=== PATIENT | male | born 1960 | race Caucasian/White ===

== ENCOUNTER 2016-09-26 19:01 | Inpatient (IN) | payer OTHER ==
[~2016-09-26] VITALS: Ht 180.3 cm; Wt 76.5 kg
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
--- NOTE | 2016-09-26 20:59 | ED ORDER SUMMARY ---
..... Patient: ALVARO ROWE OrderSheet [facility] VisitID: [id number] [place] [address] 56y, M Registration Date/Time: 09/26/2016 ORDER SHEET Weight: 74.8 kg (stated) Allergies: No Known Drug Allergy GENERAL ORDERS: Chest 2V Urgent (19:44 09/26/2016 PHutchinson DO) (Ack 19:53 NHouse ER Tech1) (20:51 MCampbell) Social Media Strategist (Continuous) (19:44 09/26/2016 PHutchinson DO) (20:03 CHagerty ER Recreation Program Coordinator) UA-Culture if indicated Urgent (19:44 09/26/2016 PHutchinson DO) (Ack 19:53 NHouse ER Tech1) (20:13 SRoberts R.N.) Cardiac Panel Stat (19:44 09/26/2016 PHutchinson DO) (Ack 19:53 NHouse ER Tech1) (20:03 CHagerty ER Recreation Program Coordinator) BNP Urgent (19:44 09/26/2016 PHutchinson DO) (Ack 19:53 NHouse ER Tech1) (20:03 CHagerty ER Recreation Program Coordinator) Amylase Urgent (19:44 09/26/2016 PHutchinson DO) (Ack 19:53 NHouse ER Tech1) (20:03 CHagerty ER Recreation Program Coordinator) PT with INR Urgent (19:44 09/26/2016 PHutchinson DO) (Ack 19:53 NHouse ER Tech1) (20:03 CHagerty ER Recreation Program Coordinator) TSH Urgent (19:44 09/26/2016 PHutchinson DO) (Ack 19:53 NHouse ER Tech1) (20:03 CHagerty ER Recreation Program Coordinator) Oxygen (2 L/min) (NC) (19:44 09/26/2016 PHutchinson DO) (20:03 CHagerty ER Recreation Program Coordinator) Pulse oximeter (19:44 09/26/2016 PHutchinson DO) (20:03 CHagerty ER Recreation Program Coordinator) EKG - ER Stat (19:44 09/26/2016 PHutchinson DO) (20:03 CHagerty ER Recreation Program Coordinator) Vitals (19:44 09/26/2016 PHutchinson DO) (20[facility] Blood Culture (No) (N/A) Urgent (19:45 09/26/2016 PHutchinson DO) (Ack 19:53 HIouse ER Tech1) (20:03 [facility] Rapid Influenza Screen (Nasal Pharyngeal) (FORM STRIPPER swab) Urgent (19:46 09/26/2016 PHutchinson DO) (Ack 19:53 HIouse ER Tech1) (22:02 SRoberts R.N.) (22:04 HIouse ER Tech1) Ammonia Level Urgent (21:02 09/26/2016 PHutchinson DO) (Ack 21:05 NHouse ER Tech1) (21:55 NHouse ER Tech1) Lactate, Serum Urgent (21:57 09/26/2016 PHutchinson DO) (22:04 HIouse ER Tech1) PCT (Procalcitonin) Urgent (21:57 09/26/2016 PHutchinson DO) (22:04 HIouse ER Tech1) MEDICATION ORDERS: DuoNeb Neb Tx 1 unit dose (NOW) (19:44 09/26/2016 PHutchinson DO) (20:04 [facility] ER Recreation Program Coordinator) Levaquin PO 750 mg (after blood cultures) (20:47 09/26/2016 PHutchinson DO) (Ack 21:16 SRoberts R.N.) (21:28 SRoberts R.N.) NitroGLYCERIN Paste Topical 1.5 in. (NOW, to CW) (20:57 09/26/2016 PHutchinson DO) (Ack 21:16 SRoberts R.N.) (21:29 SRoberts R.N.) Albuterol Neb Tx 1 unit dose (HHN) (21:20 09/26/2016 PHutchinson DO) IV FLUIDS: IV NS : initial bolus 1000 mL (1000 mL/hr), then 250 mL/hr for X4 (NOW) (19:44 09/26/2016 PHutchinson DO) (20:15 SRoberts R.N.) Solu-MEDROL IV 125 mg (NOW) (19:45 09/26/2016 PHutchinson DO) (20:15 SRoberts R.N.) ORDER SHEET NOTES: [Electronically signed by Francisca Adames R.N. (22:48 09/26/2016)] [Electronically signed by Jose Corbett DO (23:03 09/26/2016)] [Electronically locked/signed by Francisca Adames R.N. (22:48 09/26/2016)]
--- NOTE | 2016-09-26 20:59 | ED ORDER SUMMARY ---
..... Patient: ALVARO ROWE OrderSheet [facility] VisitID: [id number] [place] [address] 56y, M Registration Date/Time: 09/26/2016 ORDER SHEET Weight: 74.8 kg (stated) Allergies: No Known Drug Allergy GENERAL ORDERS: Chest 2V Urgent (19:44 09/26/2016 PHutchinson DO) (Ack 19:53 NHouse ER Tech1) (20:51 MCampbell) Men'S Leather Dress Belt Maker (Continuous) (19:44 09/26/2016 PHutchinson DO) (20:03 CHagerty ER Underwriting Consultant) UA-Culture if indicated Urgent (19:44 09/26/2016 PHutchinson DO) (Ack 19:53 NHouse ER Tech1) (20:13 SRoberts R.N.) Cardiac Panel Stat (19:44 09/26/2016 PHutchinson DO) (Ack 19:53 NHouse ER Tech1) (20:03 CHagerty ER Underwriting Consultant) BNP Urgent (19:44 09/26/2016 PHutchinson DO) (Ack 19:53 NHouse ER Tech1) (20:03 CHagerty ER Underwriting Consultant) Amylase Urgent (19:44 09/26/2016 PHutchinson DO) (Ack 19:53 NHouse ER Tech1) (20:03 CHagerty ER Underwriting Consultant) PT with INR Urgent (19:44 09/26/2016 PHutchinson DO) (Ack 19:53 NHouse ER Tech1) (20:03 CHagerty ER Underwriting Consultant) TSH Urgent (19:44 09/26/2016 PHutchinson DO) (Ack 19:53 NHouse ER Tech1) (20:03 CHagerty ER Underwriting Consultant) Oxygen (2 L/min) (NC) (19:44 09/26/2016 PHutchinson DO) (20:03 CHagerty ER Underwriting Consultant) Pulse oximeter (19:44 09/26/2016 PHutchinson DO) (20:03 CHagerty ER Underwriting Consultant) EKG - ER Stat (19:44 09/26/2016 PHutchinson DO) (20:03 CHagerty ER Underwriting Consultant) Vitals (19:44 09/26/2016 PHutchinson DO) [facility] [facility] Blood Culture (No) (N/A) Urgent (19:45 09/26/2016 PHutchinson DO) (Ack 19:53 NCouse ER Tech1) (20:[address] [facility] Rapid Influenza Screen (Nasal Pharyngeal) (STONE LAYER swab) Urgent (19:46 09/26/2016 PHutchinson DO) (Ack 19:53 NCouse ER Tech1) (22:02 SRoberts R.N.) (22:04 NCouse ER Tech1) Ammonia Level Urgent (21:02 09/26/2016 PHutchinson DO) (Ack 21:05 NHouse ER Tech1) (21:55 NHouse ER Tech1) Lactate, Serum Urgent (21:57 09/26/2016 PHutchinson DO) (22:04 NCouse ER Tech1) PCT (Procalcitonin) Urgent (21:57 09/26/2016 PHutchinson DO) (22:04 NCouse ER Tech1) MEDICATION ORDERS: DuoNeb Neb Tx 1 unit dose (NOW) (19:44 09/26/2016 PHutchinson DO) (20:04 [facility] ER Underwriting Consultant) Levaquin PO 750 mg (after blood cultures) (20:47 09/26/2016 PHutchinson DO) (Ack 21:16 SRoberts R.N.) (21:28 SRoberts R.N.) NitroGLYCERIN Paste Topical 1.5 in. (NOW, to CW) (20:57 09/26/2016 PHutchinson DO) (Ack 21:16 SRoberts R.N.) (21:29 SRoberts R.N.) Albuterol Neb Tx 1 unit dose (HHN) (21:20 09/26/2016 PHutchinson DO) IV FLUIDS: IV NS : initial bolus 1000 mL (1000 mL/hr), then 250 mL/hr for X4 (NOW) (19:44 09/26/2016 PHutchinson DO) (20:15 SRoberts R.N.) Solu-MEDROL IV 125 mg (NOW) (19:45 09/26/2016 PHutchinson DO) (20:15 SRoberts R.N.) ORDER SHEET NOTES: [Electronically signed by Francisca Adames R.N. (22:48 09/26/2016)] [Electronically signed by Jose Corbett DO (23:03 09/26/2016)] [Electronically locked/signed by Francisca Adames R.N. (22:48 09/26/2016)]
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
--- NOTE | 2016-09-26 21:24 | DIAGNOSTIC IMAGING REPORT ---
PROCEDURE: XR CHEST 2 VIEW INDICATION: SHORTNESS OF BREATH, initial encounter TECHNIQUE: PA and lateral view. COMPARISON: Chest 12/04 08:16 FINDINGS: New mild diffuse interstitial infiltrates bilaterally, more confluent in the right lower and left upper lobes. Heart size, mediastinum and prior vessels are normal. Bony thorax is unremarkable. IMPRESSION: 1. Diffuse bilateral interstitial infiltrate suggestive of atypical pneumonia (viral, Mycoplasma)
--- NOTE | 2016-09-26 23:03 | ED MAR SUMMARY ---
..... Medication Administration Record [facility] [address] [place] [address] Patient: ALVARO ROWE Visit ID: [id number] 56y, M Weight: 74.8 kg Height/Length: 71 in BMI: 23 ALLERGIES: No Known Drug Allergy Given 20:03 09/26/2016 Joao Russell, ER Electric [employer] Medication Administered: DUONEB [NEB TX] (IPRATROPIUM-ALBUTEROL), Dose: 1 unit dose Nebulizer Neb TX. Medication Ordered: DuoNeb Neb Tx 1 unit dose (NOW). Given 20:05 09/26/2016 Francisca Adames R.N. Medication Administered: SOLU-MEDROL [IVP] (METHYLPREDNISOLONE SODIUM SUCC), Dose: 125 mg IVP over 1 minute(s), Site: #1 right AC. Medication Ordered: Solu-MEDROL IV 125 mg (NOW). Start 20:05 09/26/2016 Francisca Adames R.N., Continued Upon Admission 22:33 09/26/2016 Francisca Adames R.N. Medication Administered: IV NS (SALINE), Dose: IV Fluids over 4 hour(s), Rate: 250 mL/hr, Bolus: 1000 mL over 1 hour(s), Dispensed: 1000 mL bag, Site: #1 right AC. Medication Ordered: IV NS : initial bolus 1000 mL (1000 mL/hr), then 250 mL/hr for X4 (NOW). Given 21:09/26/2016 Francisca Adames R.N. Medication Administered: LEVAQUIN [PO] (LEVOFLOXACIN), Dose: 750 mg PO. Medication Ordered: Levaquin PO 750 mg (after blood cultures). Given 21:29 09/26/2016 Francisca Adames R.N. Medication Administered: NITROGLYCERIN PASTE [TOPICAL], Dose: 1.5 in. Topical. Medication Ordered: NitroGLYCERIN Paste Topical 1.5 in. (NOW, to ).
--- NOTE | 2016-09-26 23:03 | ED MED RECONCILIATION SUMMARY ---
Patient: ALVARO ROWE Medication Reconciliation Report [facility] VisitID: [id number] [address] [place] [address] 56y, M Registration Date/Time: 09/26/2016 Weight: 74.8 kg Height/Length: 71 in. BMI: 23.0 ALLERGIES: No Known Drug Allergy The patient's Home Medications are listed below: THE FOLLOWING MEDICATIONS NEED TO BE RECONCILED: Atenolol Oral 100 mg, daily Baclofen 20mg tid Cefuroxime Axetil Oral 500 mg, 2x a day Flagyl Oral 500 mg, 4x a day Omeprazole Oral 20 mg, daily Qvar Inhalation, day Ventolin hfa 200 The source(s) of the original Home Medication information: patient The following Medications were given to the patient in the Emergency Department: Duoneb [Neb Tx] Neb TX 1 unit dose, administered: 09/26/2016 8:03:00 PM IV NS IV Fluids bolus 1000 mL over 1 hour(s), then 250 mL/hr, administered: 09/26/2016 8:05:00 PM SOLU-MEDROL [IVP] IVP 125 mg, administered: 09/26/2016 8:05:00 PM Levaquin [PO] PO 750 mg, administered: 09/26/2016 9:28:00 PM NITROGLYCERIN PASTE [TOPICAL] Topical 1.5 in., administered: 09/26/2016 9:29:00 PM The following Medications were prescribed to the patient: None.
--- NOTE | 2016-09-26 23:03 | ED DISCHARGE INSTRUCTIONS ---
Patient: ALVARO ROWE General Instructions [facility] VisitID: [id number] [address] [place] [address] 56y, M Registration Date/Time: 09/26/2016 Acute exacerbation of COPD. Bacterial pneumonia with hypoxemia. Vital signs recorded and reviewed; empiric antibiotics given in the ED. Abnormal liver function test. Acute urinary tract infection with cystitis. (Electronically signed by Jose Corbett DO 09/26/2016 23:03)
--- NOTE | 2016-09-26 23:03 | ED MAR SUMMARY ---
..... Medication Administration Record [facility] [address] [place] [address] Patient: ALVARO ROWE Visit ID: [id number] 56y, M Weight: 74.8 kg Height/Length: 71 in BMI: 23 ALLERGIES: No Known Drug Allergy Given 20:03 09/26/2016 Joao Russell, ER Wharf Lab[employer] Medication Administered: DUONEB [NEB TX] (IPRATROPIUM-ALBUTEROL), Dose: 1 unit dose Nebulizer Neb TX. Medication Ordered: DuoNeb Neb Tx 1 unit dose (NOW). Given 20:05 09/26/2016 Francisca Adames R.N. Medication Administered: SOLU-MEDROL [IVP] (METHYLPREDNISOLONE SODIUM SUCC), Dose: 125 mg IVP over 1 minute(s), Site: #1 right AC. Medication Ordered: Solu-MEDROL IV 125 mg (NOW). Start 20:05 09/26/2016 Francisca Adames R.N., Continued Upon Admission 22:33 09/26/2016 Francisca Adames R.N. Medication Administered: IV NS (SALINE), Dose: IV Fluids over 4 hour(s), Rate: 250 mL/hr, Bolus: 1000 mL over 1 hour(s), Dispensed: 1000 mL bag, Site: #1 right AC. Medication Ordered: IV NS : initial bolus 1000 mL (1000 mL/hr), then 250 mL/hr for X4 (NOW). Given 21:09/26/2016 Francisca Adames R.N. Medication Administered: LEVAQUIN [PO] (LEVOFLOXACIN), Dose: 750 mg PO. Medication Ordered: Levaquin PO 750 mg (after blood cultures). Given 21:29 09/26/2016 Francisca Adames R.N. Medication Administered: NITROGLYCERIN PASTE [TOPICAL], Dose: 1.5 in. Topical. Medication Ordered: NitroGLYCERIN Paste Topical 1.5 in. (NOW, to ).
--- NOTE | 2016-09-26 23:03 | ED DISCHARGE INSTRUCTIONS ---
Patient: ALVARO ROWE General Instructions [facility] VisitID: [id number] [address] [place] [place] [address] 56y, M Registration Date/Time: 09/26/2016 Acute exacerbation of COPD. Bacterial pneumonia with hypoxemia. Vital signs recorded and reviewed; empiric antibiotics given in the ED. Abnormal liver function test. Acute urinary tract infection with cystitis. (Electronically signed by Jose Corbett DO 09/26/2016 23:03)
--- NOTE | 2016-09-26 23:03 | ED MED RECONCILIATION SUMMARY ---
Patient: ALVARO ROWE Medication Reconciliation Report [facility] VisitID: [id number] [address] [place] [address] 56y, M Registration Date/Time: 09/26/2016 Weight: 74.8 kg Height/Length: 71 in. BMI: 23.0 ALLERGIES: No Known Drug Allergy The patient's Home Medications are listed below: THE FOLLOWING MEDICATIONS NEED TO BE RECONCILED: Atenolol Oral 100 mg, daily Baclofen 20mg tid Cefuroxime Axetil Oral 500 mg, 2x a day Flagyl Oral 500 mg, 4x a day Omeprazole Oral 20 mg, daily Qvar Inhalation, day Ventolin hfa 200 The source(s) of the original Home Medication information: patient The following Medications were given to the patient in the Emergency Department: Duoneb [Neb Tx] Neb TX 1 unit dose, administered: 09/26/2016 8:03:00 PM IV NS IV Fluids bolus 1000 mL over 1 hour(s), then 250 mL/hr, administered: 09/26/2016 8:05:00 PM SOLU-MEDROL [IVP] IVP 125 mg, administered: 09/26/2016 8:05:00 PM Levaquin [PO] PO 750 mg, administered: 09/26/2016 9:28:00 PM NITROGLYCERIN PASTE [TOPICAL] Topical 1.5 in., administered: 09/26/2016 9:29:00 PM The following Medications were prescribed to the patient: None.
[2016-09-26 23:10] VITALS: BP 147/80
[2016-09-26] MEDS ORDERED: CEFUROXIME AXE500 MG PO (23:37)
[2016-09-26] MEDS ORDERED: OMEPRAZOLE20 M1 PO (23:40)
[2016-09-26] MEDS ORDERED: BACLOFEN20 MG PO (23:43)
[2016-09-26] MEDS ORDERED: FLAGYL500 MG PO (23:44)
[2016-09-26] MEDS ORDERED: ATENOLOL100 MG PO (23:45)
[2016-09-26] MEDS ORDERED: VENTOLIN HFA IN (23:45)
[2016-09-26] MEDS ORDERED: QVAR40 MCG IN (23:46)
[2016-09-27] VITALS (8 sets, daily range): BP systolic 141–171; BP diastolic 78–101
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
--- NOTE | 2016-09-27 12:57 | Progress Note ---
Subjective General Pt states his cough and shortness of breath are slightly improved. He denies any fever overnight. No other complaints or concerns at this time. Physical Exam Vital Signs / I&Os Vital Signs Date Time Temp Pulse Resp B/P Pulse O2 O2 Flow FiO2 Ox Delivery Rate 09/27 1108 2.0 09/27 1020 98.2 92 16 157/92 95 Nasal 2.0 Cannula 09/27 0839 95 09/27 0752 2.0 09/27 0701 98.4 95 16 145/86 96 Nasal 2.0 Cannula 09/27 0212 98.1 102 16 141/78 96 Nasal 2.0 Cannula 09/27 0015 Nasal 2.0 Cannula 09/26 2334 2.0 09/26 2310 98.2 117 18 147/80 92 Nasal 2.0 Cannula 09/26 2153 2.0 09/26 1958 2.0 I&O 09/27 0000 09/26 1600 09/26 0800 Intake Total Output Total Balance Other GENERAL: NAD; Pt laying comfortably in bed HEENT: AT/NC; PERRLA, EOMI; MM Moist CARDIAC: RRR, No M/R/G appreciated PULM: Crackles at bilateral lung bases with diffuse expiratory wheezes throughout ABD: Soft, NT, ND, Positive BS in all quadrants; No hepatosplenomegaly appreciated EXT: No C/C/E in bilateral upper and lower extremity; No calve tenderness bilaterally SKIN: Warm, dry, pink, and intact NEURO: Alert and oriented x3; Following all commands PSYCH: Normal mood and affect LAB Results Laboratory Tests 09/27 09/26 09/26 09/26 09/26 0905 2109 2019 2019 1999 Chemistry Plasma Sodium (136 - 145 mmol/L) 139 Plasma Potassium (3.5 - 5.1 mmol/L) 3.4 Plasma Chloride (98 - 107 mmol/L) 108 CO2 (Enzymatic) (21 - 32 mmol/L) 21 BUN (7 - 18 mg/dL) 8 Creatinine (0.6 - 1.3 mg/dL) 0.8 Est GFR ( Amer) (mL/min) >60 Est GFR (Non-Af Amer) (mL/min) >60 Glucose (70 - 110 mg/dL) 218 Lactic Acid (0.4 - 2.0 mmol/L) 1.0 Plasma Calcium (8.5 - 10.1 mg/dL) 8.6 Ammonia (11 - 32 umol/L) 37 B-Natriuretic Peptide (5 - 100 pg/ml) 328 Procalcitonin (0 - 0.5 ng/mL) <0.5 Hematology WBC (4.5 - 11.5 K/uL) 9.2 RBC (4.50 - 5.90 M/uL) 4.09 Hgb (13.5 - 17.5 gm/dL) 13.0 Hct (41.0 - 53.0 %) 40.0 MCV (80 - 100 fL) 98 MCH (26 - 34 pg) 32 RDW (11.6 - 14.8 %) 15.0 Neut % (Auto) (50 - 75 %) 93.4 Lymph % (Auto) (25 - 40 %) 5.2 [place] % (Auto) (3 - 14 %) 1.3 Eos % (Auto) (0 - 4 %) 0 Baso % (Auto) (0 - 2 %) 0.1 Plt Count, EDTA (150 - 400 K/uL) 256 PUBS MCHC (31 - 37 g/dL) 33 09/26 Chemistry Plasma Sodium (136 - 145 mmol/L) 140 Plasma Potassium (3.5 - 5.1 mmol/L) 3.5 Plasma Chloride (98 - 107 mmol/L) 106 CO2 (Enzymatic) (21 - 32 mmol/L) 24 BUN (7 - 18 mg/dL) 4 Creatinine (0.6 - 1.3 mg/dL) 0.8 Est GFR ( Amer) (mL/min) >60 Est GFR (Non-Af Amer) (mL/min) >60 Glucose (70 - 110 mg/dL) 86 Plasma Calcium (8.5 - 10.1 mg/dL) 8.8 Plasma Magnesium (1.8 - 2.4 mg/dL) 1.6 Total Bilirubin (0.0 - 1.0 mg/dL) 0.9 AST (15 - 37 U/L) 65 ALT (12 - 78 U/L) 40 Alkaline Phosphatase (46 - 116 U/L) 180 Creatine Kinase (24 - 260 U/L) 32 Troponin (0.00 - 1.5 ng/mL) <0.05 Total Protein (6.4 - 8.2 g/dL) 6.1 Albumin (3.3 - 5.0 g/dL) 2.9 Amylase (25 - 115 U/L) 21 TSH 3rd Generation (0.30 - 3.74 uIU/mL) 0.882 Coagulation INR (0.8 - 1.2) 1.2 Hematology WBC (4.5 - 11.5 K/uL) 13.0 RBC (4.50 - 5.90 M/uL) 4.45 Hgb (13.5 - 17.5 gm/dL) 14.2 Hct (41.0 - 53.0 %) 43.0 MCV (80 - 100 fL) 97 MCH (26 - 34 pg) 32 RDW (11.6 - 14.8 %) 14.6 Neut % (Auto) (50 - 75 %) 89.6 Lymph % (Auto) (25 - 40 %) 6.0 [place] % (Auto) (3 - 14 %) 2.6 Eos % (Auto) (0 - 4 %) 1.7 Baso % (Auto) (0 - 2 %) 0.1 Plt Count, EDTA (150 - 400 K/uL) 257 PUBS MCHC (31 - 37 g/dL) 33 Urines Urine Color STEPHANIE Urine Appearance CLEAR Urine pH (5.0 - 8.0) 5.5 Ur Specific [place] (1.010 - 1.030) >= 1.030 Urine Protein (NEGATIVE) NEGATIVE Urine Ketones (NEGATIVE) 1+ Urine Blood (NEGATIVE) NEGATIVE Urine Nitrite (NEGATIVE) POSITIVE Urine Bilirubin (NEGATIVE) NEGATIVE Ur Bilirubin Confirm (NEGATIVE) NEGATIVE Urine Urobilinogen (0.2 - 1.0 EU/dL) 0.2 Ur Leukocyte Esterase (NEGATIVE) TRACE Urine RBC (0 - 1 rbc/hpf) 3-5 Urine WBC (0 - 1 wbc/hpf) 3-5 Ur Epithelial Cells (0 - 5 EPI/hpf) 1-3 Urine Bacteria (NONE SEEN) FEW (1+) Urine Glucose (NEGATIVE) NEGATIVE Urine Comment CULTURE INDICATED Microbiology Date/Time Procedure - Status Source Growth 09/27 0121 Influenza Screen - COMP NASALPHAR 09/26 2000 Urine Culture - RES URINE CC 09/26 2000 Blood Culture - RECD BLOOD 09/26 2000 Blood Culture - RECD BLOOD Assessment and Plan Problem List 1. Pneumonia Plan - Stop Cefuroxime now - Start Levaquin 750 mg IV daily now - Blood cultures pending - Repeat CBC in AM - Continue supplemental O2 to keep SpO2 greater than 92% - Breathing treatments PRN - Repeat CBC with diff in AM - Check procalcitonin now 2. COPD exacerbation Plan - Continue Solu-Medrol 80 mg IV q 6 hours for now - Continue Duo-Neb breathing treatments q 6 hours - Secondary to Pneumonia 3. Essential hypertension Plan - Well controlled - Continue Atenolol and Lisinopril 4. Hypokalemia Plan - Will replace with KCl 40 mEq IV piggyback now - Recheck K in AM - Telemetry monitoring 5. Muscle spasm Plan - Continue home dose of Baclofen
[2016-09-28 02:36] VITALS: BP 163/89
[2016-09-28 07:01] VITALS: BP 178/102
[2016-09-28 09:58] VITALS: BP 153/86
--- NOTE | 2016-09-28 12:19 | DIAGNOSTIC IMAGING REPORT ---
PROCEDURE: CT ABD/PELVIS WITH CONTRAST INDICATION: ABDOMINAL PAIN TECHNIQUE: 125 ml of Isovue 300 were injected intravenously and axial images were obtained of the entire abdomen and pelvis with sagittal and coronal reformations. COMPARISON: Comparison is made to chest x-ray (09/26/2016), CTA thorax and abdomen (11/01/2015), FINDINGS: ABDOMEN: There are mild bilateral parenchymal changes at the lung bases (left greater than right) with minimal pleural effusions, left greater right). Trace abdominal ascites with mild thickening of the left anterior pararenal retroperitoneal fascia. Gallbladder is contracted with mild thickening of the gallbladder wall (moderate ingested material in the stomach). Mild chronic dilation of the common bile duct (11 mm). Pancreas appears normal Moderate to marked hepatomegaly with heterogeneous appearance consistent with intrinsic liver disease. Moderate splenomegaly (is 14 cm). Kidneys and aorta are normal. Bowel pattern is normal, including appendix. Mild dextroscoliosis with moderate degenerative changes of the lumbar spine. PELVIS: Trace ascites. Mild sigmoid diverticulosis. Pelvic structures are otherwise normal. IMPRESSION: 1. Trace ascites with thickening of fascial planes, and small bilateral pleural effusions suggests low protein state. 2. Contracted gallbladder with thickened gallbladder wall is nonspecific finding. Consider low protein state, intrinsic liver disease, or cholecystitis. 3. Moderate to marked hepatomegaly with intrinsic liver disease. 4. Development of moderate splenomegaly (14 cm). 5. Mild diverticulosis of the sigmoid colon. No evidence of diverticulitis. 6. Mild multifocal parenchymal changes at the lung bases consistent with pneumonia (e.g., Mycoplasma). 7. Findings discussed with Dr. Mcpherson. All CT scans at this facility use dose modulation, iterative reconstruction, and/or weight-based dosing when appropriate to reduce radiation dose to as low as reasonably achievable.
[2016-09-28 14:25] VITALS: BP 170/94
--- NOTE | 2016-09-28 16:01 | Progress Note ---
Subjective General Pt states his shortness of breath is improved today. He continues to complain of cough but he denies any fever. Pt also complains of right sided abdominal pain today. He states the pain has been present on and off for several weeks now. He denies any nausea, vomiting, constipation or diarrhea associated with this pain. Pt states the pain is a dull, constant pain at the moment. No other complaints or concerns at this time. Physical Exam Vital Signs / I&Os Vital Signs Date Time Temp Pulse Resp B/P Pulse O2 O2 Flow FiO2 Ox Delivery Rate 09/28 1425 97.0 90 18 170/94 97 Nasal 2.0 Cannula 09/28 0958 97.9 78 18 153/86 98 Nasal 2.0 Cannula 09/28 0815 94 09/28 0714 2.0 09/28 0701 98.4 94 18 178/102 93 Room Air 09/28 0236 98.1 97 18 163/89 95 Nasal 2.0 Cannula 09/28 0219 2.0 09/27 2248 168/92 09/27 2234 170/100 09/27 2228 98.6 99 18 171/101 96 Nasal 2.0 Cannula 09/27 2045 Room Air 2.0 09/27 1953 2.0 09/27 1840 98.8 91 18 151/81 95 Nasal 2.0 Cannula I&O 09/28 0000 09/27 1600 09/27 0800 Intake Total 2066 480 450 Output Total 900 500 300 Balance 1166 -20 150 Other GENERAL: NAD; Pt laying comfortably in bed HEENT: AT/NC; PERRLA, EOMI; MM Moist CARDIAC: RRR, No M/R/G appreciated PULM: Corase breath sounds at bilateral bases ABD: Soft, TTP over RUQ and RLQ, ND, Positive BS in all quadrants; No hepatosplenomegaly appreciated EXT: No C/C/E in bilateral upper and lower extremity; No calve tenderness bilaterally SKIN: Warm, dry, pink, and intact NEURO: Alert and oriented x3; Following all commands PSYCH: Normal mood and affect LAB Results Laboratory Tests 09/28 09/28 0520 0520 Chemistry Plasma Sodium (136 - 145 mmol/L) 142 Plasma Potassium (3.5 - 5.1 mmol/L) 3.9 Plasma Chloride (98 - 107 mmol/L) 112 CO2 (Enzymatic) (21 - 32 mmol/L) 21 BUN (7 - 18 mg/dL) 11 Creatinine (0.6 - 1.3 mg/dL) 0.8 Est GFR ( Amer) (mL/min) >60 Est GFR (Non-Af Amer) (mL/min) >60 Glucose (70 - 110 mg/dL) 230 Plasma Calcium (8.5 - 10.1 mg/dL) 8.7 Procalcitonin (0 - 0.5 ng/mL) <0.5 Hematology WBC (4.5 - 11.5 K/uL) 20.0 RBC (4.50 - 5.90 M/uL) 3.95 Hgb (13.5 - 17.5 gm/dL) 12.4 Hct (41.0 - 53.0 %) 38.9 MCV (80 - 100 fL) 99 MCH (26 - 34 pg) 31 RDW (11.6 - 14.8 %) 15.2 Neut % (Auto) (50 - 75 %) 93.5 Lymph % (Auto) (25 - 40 %) 3.8 [place] % (Auto) (3 - 14 %) 2.7 Eos % (Auto) (0 - 4 %) 0 Baso % (Auto) (0 - 2 %) 0 Plt Count, EDTA (150 - 400 K/uL) 291 PUBS MCHC (31 - 37 g/dL) 32 Assessment and Plan Problem List 1. COPD exacerbation Plan - Improving - Stop IV Solu-Medrol at this time - Start Prednisone 40 mg daily now - Continue supplemental O2 PRN to keep SpO2 greater than 92% - Continue Duo-Neb breathing treatments PRN 2. Pneumonia Plan - Improving - WBC count is 20K today, however there is likley a large component of demargination - Continue Levaquin for now - Recheck CBC with diff in AM - Blood cultures are negative at 24 hours 3. Essential hypertension Plan - Uncontrolled - Continue home Lisinopril - Monitor BP closely - Start Amlodipine 5 mg PO daily now 4. Abdominal pain Plan - Will order a CT of the abdomen and pelvis with and without contrast now - Continue Percocet 10-325 mg PO q 6 hours PRN for severe pain
[2016-09-28 18:10] VITALS: BP 161/97
[2016-09-28 22:25] VITALS: BP 161/80
[2016-09-29 03:02] VITALS: BP 153/84
[2016-09-29 07:35] VITALS: BP 169/92
[2016-09-29 11:43] VITALS: BP 166/98
--- NOTE | 2016-09-29 12:54 | Progress Note ---
Subjective General see note written in chart.
--- NOTE | 2016-09-29 12:54 | Progress Note ---
Subjective General see note written in chart.
[2016-09-29 14:52] VITALS: BP 156/83
[2016-09-29 18:11] VITALS: BP 153/85
[2016-09-29 22:34] VITALS: BP 171/91
[2016-09-30 02:43] VITALS: BP 171/93
--- NOTE | 2016-09-30 07:14 | DIAGNOSTIC IMAGING REPORT ---
PROCEDURE: XR CHEST 1 VIEW INDICATION: Follow up pneumonia. TECHNIQUE: Portable AP view 0650 hours. COMPARISON: Compared to chest x-ray on 09/26/2016. FINDINGS: Mild worsening in parenchymal changes in the left upper lung. Mild improvement in basilar interstitial changes. Heart and mediastinum are normal. Thorax is normal. IMPRESSION: 1. Mild worsening in left upper lung pneumonia with resolving basilar interstitial changes.
[2016-09-30 08:03] VITALS: BP 176/94
--- NOTE | 2016-09-30 10:23 | Progress Note ---
Subjective General 56-year-old white male admitted with coughing,wheezing and shortness of breath. Admitted to [facility] for similar complaints on 09/22/2016 withlower lobe pneumonias, treated with several broad-spectrum antibiotics, cultured as pneumococcus and Haemophilus influenza, treated with vancomycin, cefepime, and metronidazole, then switched to cefuroxime and metronidazole and discharged 09/25/2016. Admitted to [facility] due to worsening over the night. Now reports feeling little improvement. Still coughing hard. Very little phlegm production. Right side aches over the lever as it has for months. Went throught alcohol rehab 2 weeks ago. Physical Exam Vital Signs / I&Os Vital Signs Date Time Temp Pulse Resp B/P Pulse O2 O2 Flow FiO2 Ox Delivery Rate 09/30 0924 Nasal 2.0 Cannula 09/30 0906 78 09/30 0803 97.7 73 18 176/94 94 Nasal 2.0 Cannula 09/30 0758 2.0 09/30 0243 98.2 89 16 171/93 94 Nasal 2.0 Cannula 09/30 0234 2.0 09/29 2234 97.9 86 18 171/91 96 Nasal 2.0 Cannula 09/29 2045 Nasal 2.0 Cannula 09/29 2018 2.0 09/29 1811 97.5 83 20 153/85 95 Nasal 2.0 Cannula 09/29 1531 Nasal 2.0 Cannula 09/29 1452 97.5 88 18 156/83 93 Room Air 2.0 09/29 1147 94 Room Air 2.0 09/29 1143 97.5 80 18 166/98 92 Room Air 0.0 I&O 09/29 0800 09/29 1600 09/30 0000 Intake Total 607 420 4763 Output Total 250 1050 925 Balance 453 -70 150 General Appearance Alert, Oriented X3, Cooperative, No acute distress Lungs Bilateral diffuse crackles. Cardiovascular Regular rate and rhythm Abdomen Normal bowel sounds, Soft, No tenderness Extremities No edema Skin No Rashes, No Breakdown, No Significant Lesions Imaging CXR 09/30/16: Mild worsening in left upper lung pneumonia with resolving basilar interstitial changes. Assessment and Plan Problem List 1. Pneumonia Plan On appropriate antibiotics. 2. COPD exacerbation Plan Clinically improving. 3. Alcohol abuse Plan Stable post detox recently.
--- NOTE | 2016-09-30 10:23 | Progress Note ---
Subjective General 56-year-old white male admitted with coughing,wheezing and shortness of breath. Admitted to [facility] for similar complaints on 09/22/2016 withlower lobe pneumonias, treated with several broad-spectrum antibiotics, cultured as pneumococcus and Haemophilus influenza, treated with vancomycin, cefepime, and metronidazole, then switched to cefuroxime and metronidazole and discharged 09/25/2016. Admitted to [facility] due to worsening over the night. Now reports feeling little improvement. Still coughing hard. Very little phlegm production. Right side aches over the lever as it has for months. Went throught alcohol rehab 2 weeks ago. Physical Exam Vital Signs / I&Os Vital Signs Date Time Temp Pulse Resp B/P Pulse O2 O2 Flow FiO2 Ox Delivery Rate 09/30 0924 Nasal 2.0 Cannula 09/30 0906 78 09/30 0803 97.7 73 18 176/94 94 Nasal 2.0 Cannula 09/30 0758 2.0 09/30 0243 98.2 89 16 171/93 94 Nasal 2.0 Cannula 09/30 0234 2.0 09/29 2234 97.9 86 18 171/91 96 Nasal 2.0 Cannula 09/29 2045 Nasal 2.0 Cannula 09/29 2018 2.0 09/29 1811 97.5 83 20 153/85 95 Nasal 2.0 Cannula 09/29 1531 Nasal 2.0 Cannula 09/29 1452 97.5 88 18 156/83 93 Room Air 2.0 09/29 1147 94 Room Air 2.0 09/29 1143 97.5 80 18 166/98 92 Room Air 0.0 I&O 09/29 0800 09/29 1600 09/30 0000 Intake Total 738 291 1027 Output Total 250 1050 925 Balance 453 -70 150 General Appearance Alert, Oriented X3, Cooperative, No acute distress Lungs Bilateral diffuse crackles. Cardiovascular Regular rate and rhythm Abdomen Normal bowel sounds, Soft, No tenderness Extremities No edema Skin No Rashes, No Breakdown, No Significant Lesions Imaging CXR 09/30/16: Mild worsening in left upper lung pneumonia with resolving basilar interstitial changes. Assessment and Plan Problem List 1. Pneumonia Plan On appropriate antibiotics. 2. COPD exacerbation Plan Clinically improving. 3. Alcohol abuse Plan Stable post detox recently.
[2016-09-30 10:48] VITALS: BP 172/97
[2016-09-30 14:45] VITALS: BP 159/85
[2016-09-30 18:29] VITALS: BP 174/94
[2016-09-30 22:25] VITALS: BP 157/86
[2016-10-01 02:11] VITALS: BP 145/79
[2016-10-01 07:15] VITALS: BP 147/90
--- NOTE | 2016-10-01 08:02 | DIAGNOSTIC IMAGING REPORT ---
PROCEDURE: XR CHEST 1 VIEW INDICATION: pneumonia, follow-up TECHNIQUE: Portable AP view 05:34 a.m. COMPARISON: Chest x-ray 09/30/2016 FINDINGS: Resolved left upper lobe pneumonia with continued improvement of mild increased interstitial markings bilaterally. Heart and mediastinum are normal. Thorax is normal. IMPRESSION: 1. Continued improvement of bilateral interstitial infiltrates
--- NOTE | 2016-10-01 09:03 | Progress Note ---
Subjective General Note Date: October 01, 2016 Admission Date: September 26, 2016 Hospital Day: 7 PCP: Dr. Camacho Status: Inpatient Advanced Directive: FULL CODE Room: 308 Brief History: The patient is a 56-year-old white male with a significant past medical history of alcohol abuse, COPD, nicotine dependence-smoking, hypertension, who presented to [facility] emergency department secondary to complaints of shortness of breath, cough, and generalized malaise. Evaluation at [facility] emergency department to have findingsconsistent with exacerbation COPD, pneumonia. Secondary to the above, the patient was admitted by David Boyd M.D. for further evaluation and treatment. For other history of present illness, past medical history, family history, social history, review systems, and admission physical examination please see the admission history and physical exam and ER visit note in the patient's medical record. Subjective: The patient states he is doing significantly better today. 40-50% improved. Persistent cough which is currently nonproductive. No fever or chills. Patient requests: No specific Medications and Allergies Medications Current Medications Sig/Radha Start time Last Medication Dose Route Stop Time Status Admin Lisinopril 10 MG BID 09/29 2100 AC 10/01 PO 0849 Prednisone 40 MG BIDWC 09/29 1800 AC 10/01 PO 0849 Amlodipine Besylate 5 MG DAILY 09/28 1800 AC 10/01 PO 0849 Insulin Human Lispro See Dose ACHS 09/28 1230 AC 09/28 Insts (1) SC 2100 Zolpidem Tartrate 5 MG QHS PRN 09/27 2100 AC 09/27 PO 2216 Levofloxacin/Dextrose 150 ML Q24HR 09/27 1100 AC 10/01 IV 0848 Oxycodone HCl 5 MG Q6H PRN 09/27 1030 AC 10/01 PO 0240 Oxycodone/ 1 TAB Q6H PRN 09/27 1030 AC 10/01 Acetaminophen PO 0240 Atenolol 50 MG DAILY 09/27 0900 AC 10/01 PO 0848 Nicotine 21 MG QAM 09/27 09 AC 10/01 TOP 0853 Clarify Med Order See Dose ASDIRECTED 09/27 0830 AC Insts (2) PO Albuterol/Ipratropium 3 ML RTQ6H 09/27 0800 AC 10/01 IN 0752 Baclofen 20 MG TID 09/27 0600 AC 10/01 PO 0541 Pantoprazole Sodium 40 MG DAILY@0600 09/27 0600 AC 10/01 IV 0541 Albuterol Sulfate 2.5 MG Q6H PRN 09/27 0500 AC 09/27 IN 1108 Acetaminophen 650 MG Q4H PRN 09/27 0415 AC 09/27 PO 0713 Dextrose/Sodium 1,000 ML ASDIRECTED 09/26 2200 AC 10/01 Chloride/Electrolyt IV 0847 Ondansetron HCl 4 MG Q4H PRN 09/26 2200 AC IV Dose Instructions: (1)Insulin Human Lispro: LOW DOSE: ACCUCHECK AND SLIDING SCALE >>To change sliding scale DISCONTINUE this order and enter a NEW order. Thanks< (2)Clarify Med Order: PT MEDS IN PHARMACY Allergies Coded Allergies: NKA (09/27/16) Physical Exam Vital Signs / I&Os Vital Signs Date Time Temp Pulse Resp B/P Pulse O2 O2 Flow FiO2 Ox Delivery Rate 10/01 0848 72 10/01 0753 2.0 10/01 0715 97.9 72 18 147/90 94 Nasal 2.0 Cannula 10/01 0211 97.7 83 16 145/79 93 Nasal 2.0 Cannula 10/01 0120 2.0 09/30 2225 98.1 79 18 157/86 98 Nasal 2.0 Cannula 09/30 2130 Nasal 2.0 Cannula 09/30 2019 2.0 09/30 1829 98.4 78 18 174/94 95 Nasal 2.0 Cannula 09/30 1445 97.5 76 20 159/85 95 Nasal 2.0 Cannula 09/30 1434 2.0 09/30 1048 97.5 85 18 172/97 94 Nasal 2.0 Cannula 09/30 0924 Nasal 2.0 Cannula 09/30 0906 78 I&O 10/01 0000 09/30 1600 09/30 0800 Intake Total 1988 600 500 Output Total 725 1500 300 Balance 1263 -900 200 General Appearance Alert, Oriented X3, Cooperative, No acute distress Lungs Scattered rhonchi. Bilateral expiratory wheezes mild Cardiovascular Regular rate and rhythm, Normal S1 and S2 Abdomen Normal bowel sounds, Soft, No tenderness Extremities No cyanosis, No clubbing Neurological Cranial nerves intact, No lateralizing signs Psych/Mental Status Mental status normal, Mood normal LAB Results Laboratory Tests 10/01 0450 Chemistry Plasma Sodium (136 - 145 mmol/L) 140 Plasma Potassium (3.5 - 5.1 mmol/L) 4.0 Plasma Chloride (98 - 107 mmol/L) 102 CO2 (Enzymatic) (21 - 32 mmol/L) 25 BUN (7 - 18 mg/dL) 17 Creatinine (0.6 - 1.3 mg/dL) 0.8 Est GFR ( Amer) (mL/min) >60 Est GFR (Non-Af Amer) (mL/min) >60 Glucose (70 - 110 mg/dL) 209 Plasma Calcium (8.5 - 10.1 mg/dL) 9.3 Plasma Magnesium (1.8 - 2.4 mg/dL) 1.8 Total Bilirubin (0.0 - 1.0 mg/dL) 0.6 AST (15 - 37 U/L) 94 ALT (12 - 78 U/L) 72 Alkaline Phosphatase (46 - 116 U/L) 172 Total Protein (6.4 - 8.2 g/dL) 6.1 Albumin (3.3 - 5.0 g/dL) 2.6 Hematology WBC (4.5 - 11.5 K/uL) 14.3 RBC (4.50 - 5.90 M/uL) 4.43 Hgb (13.5 - 17.5 gm/dL) 13.9 Hct (41.0 - 53.0 %) 43.3 MCV (80 - 100 fL) 98 MCH (26 - 34 pg) 31 RDW (11.6 - 14.8 %) 15.3 Neut % (Auto) (50 - 75 %) 89.1 Lymph % (Auto) (25 - 40 %) 7.8 [place] % (Auto) (3 - 14 %) 3.1 Eos % (Auto) (0 - 4 %) 0 Baso % (Auto) (0 - 2 %) 0 Plt Count, EDTA (150 - 400 K/uL) 278 PUBS MCHC (31 - 37 g/dL) 32 Assessment and Plan Problem List 1. Pneumonia Plan -status improved -Afebrile, leukocytosis improving -Continue Levaquin-by mouth -Possible discharge 1-2 d 2. COPD exacerbation Plan -stable to improved -Decreasing O2 requireme -Continue bronchodilator therapy, by mouth corticosteroids. 3. Alcohol abuse Plan -not problematic -No alcohol withdrawal -Encourage enrollment in alcohol treatment program post hospitalization-AA 4. Abdominal pain Plan -stable 5. Hypokalemia Plan -resolved -Potassium 4.0 -Monitor 6. Essential hypertension Plan -blood pressure mildly elevated. -Monitor -Adjustments in therapy based on blood pressure findings Current status: Fair, improved Anticipated discharge date: anticipate discharge in 1-2 days Anticipated discharge placement: Home Patient care time: Time spent in chart review, patient interview, physical exam, CPOE, and care documentation: Greater than 30 minutes Visit to patient today: 1 Complexity of care: Moderate E&M Codes Rounding: Inpt-Moderate/[id number]
[2016-10-01 10:52] VITALS: BP 176/98
[2016-10-01 14:28] VITALS: BP 164/87
[2016-10-01 18:36] VITALS: BP 144/86
[2016-10-01 21:51] VITALS: BP 162/92
[2016-10-02 02:13] VITALS: BP 161/84
[2016-10-02 06:02] VITALS: BP 152/92
--- NOTE | 2016-10-02 08:07 | Progress Note ---
Subjective General Note Date: October 02, 2016 Admission Date: September 26, 2016 Hospital Day: 8 PCP: Dr. Camacho Status: Inpatient Advanced Directive: FULL CODE Room: 308 Brief History: The patient is a 56-year-old white male with a significant past medical history of alcohol abuse, COPD, nicotine dependence-smoking, hypertension, who presented to [facility] emergency department secondary to complaints of shortness of breath, cough, and generalized malaise. Evaluation at [facility] emergency department to have findingsconsistent with exacerbation COPD, pneumonia. Secondary to the above, the patient was admitted by David Boyd M.D. for further evaluation and treatment. For other history of present illness, past medical history, family history, social history, review systems, and admission physical examination please see the admission history and physical exam and ER visit note in the patient's medical record. Subjective: The patient states he is doing significantly better today. Shortness of breath improved. Improve strength. Patient weaned off oxygen Patient requests: None other than concerns regarding possible oral candidiasis Medications and Allergies Medications Current Medications Sig/Radha Start time Last Medication Dose Route Stop Time Status Admin Prednisone 40 MG DAILY 10/02 09 AC PO Levofloxacin 750 MG 10/02 08 AC PO Lisinopril 10 MG BID 09/29 2100 AC 10/01 PO 2157 Amlodipine Besylate 5 MG DAILY 09/28 1800 AC 10/01 PO 0849 Insulin Human Lispro See Dose ACHS 09/28 1230 AC 09/28 Insts (1) SC 2100 Zolpidem Tartrate 5 MG QHS PRN 09/27 2100 AC 09/27 PO 2216 Oxycodone HCl 5 MG Q6H PRN 09/27 1030 AC 10/02 PO 0210 Oxycodone/ 1 TAB Q6H PRN 09/27 1030 AC 10/02 Acetaminophen PO 0210 Atenolol 50 MG DAILY 09/27 09 AC 10/01 PO 0848 Nicotine 21 MG QAM 09/27 09 AC 10/01 TOP 0853 Clarify Med Order See Dose ASDIRECTED 09/27 0830 AC Insts (2) PO Albuterol/Ipratropium 3 ML RTQ6H 09/27 0800 AC 10/02 IN 0751 Baclofen 20 MG TID 09/27 06 AC 10/02 PO 0529 Pantoprazole Sodium 40 MG DAILY@0600 09/27 0600 AC 10/02 IV 0529 Albuterol Sulfate 2.5 MG Q6H PRN 09/27 0500 AC 09/27 IN 1108 Acetaminophen 650 MG Q4H PRN 09/27 0415 AC 09/27 PO 0713 Dextrose/Sodium 1,000 ML ASDIRECTED 09/26 2200 AC 10/02 Chloride/Electrolyt IV 0212 Ondansetron HCl 4 MG Q4H PRN 09/26 2200 AC IV Dose Instructions: (1)Insulin Human Lispro: LOW DOSE: ACCUCHECK AND SLIDING SCALE >>To change sliding scale DISCONTINUE this order and enter a NEW order. Thanks< (2)Clarify Med Order: PT MEDS IN PHARMACY Allergies Coded Allergies: NKA (09/27/16) Physical Exam Vital Signs / I&Os Vital Signs Date Time Temp Pulse Resp B/P Pulse O2 O2 Flow FiO2 Ox Delivery Rate 10/02 06 97.7 57 16 152/92 94 Nasal 1.0 Cannula 10/02 0213 97.5 84 16 161/84 96 Nasal 1.0 Cannula 10/02 0145 1.0 10/01 2151 98.1 71 16 162/92 96 Nasal 1.0 Cannula 10/01 1948 Nasal 1.0 Cannula 10/01 1921 1.0 10/01 1836 98.6 73 18 144/86 97 Nasal 2.0 Cannula 10/01 1539 2.0 10/01 1429 2.0 10/01 1428 97.5 66 18 164/87 97 Nasal 2.0 Cannula 10/01 1419 92 Room Air 0.0 10/01 1052 97.5 81 18 176/98 97 Nasal 2.0 Cannula 10/01 0848 72 I&O 10/02 0000 10/01 1600 10/01 0800 Intake Total 1503 240 628 Output Total 450 925 575 Balance 1053 -685 53 General Appearance Alert, Oriented X3, Cooperative, No acute distress HEENT Moist mucous membranes, oral candidiasis present Lungs Scattered rhonchi, no significant wheezes Cardiovascular Regular rate and rhythm, Normal S1 and S2 Abdomen Normal bowel sounds, Soft Extremities No cyanosis, No clubbing Neurological Cranial nerves intact, No lateralizing signs Psych/Mental Status Mental status normal, Mood normal LAB Results Laboratory Tests 10/02 07 Chemistry Plasma Sodium Pending Plasma Potassium Pending Plasma Chloride Pending CO2 (Enzymatic) Pending BUN Pending Creatinine Pending Est GFR ( Amer) Pending Est GFR (Non-Af Amer) Pending Glucose Pending Plasma Calcium Pending Hematology WBC (4.5 - 11.5 K/uL) Pending RBC (4.50 - 5.90 M/uL) Pending Hgb (13.5 - 17.5 gm/dL) Pending Hct (41.0 - 53.0 %) Pending MCV (80 - 100 fL) Pending MCH (26 - 34 pg) Pending RDW (11.6 - 14.8 %) Pending Neut % (Auto) (50 - 75 %) Pending Lymph % (Auto) (25 - 40 %) Pending Sandoval % (Auto) (3 - 14 %) Pending Band Neutrophils % (0 - 8 %) Pending Plt Count, EDTA (150 - 400 K/uL) Pending PUBS MCHC (31 - 37 g/dL) Pending Assessment and Plan Problem List 1. Pneumonia Plan -Continues to improve -DC to home today -Outpatient follow up with PCP next week 2. COPD exacerbation Plan -Improved -Patient weaned off supplemental oxygen -Continue bronchodilators, corticosteroids -DC'd today 3. Alcohol abuse Plan -Patient encouraged to abstain from alcohol -No signs of alcohol withdrawal during the patient's hospitalization 4. Abdominal pain Plan -Resolved 5. Hypokalemia Plan -Resolved 6. Oral candidiasis Plan -Patient with findings of oral candidiasis -Mycelex devan 1 by mouth 5 times a day 7. Essential hypertension Plan -Blood pressure mildly elevated -Blood pressure 152/92 this a.m. -Low-salt diet -Increase lisinopril to 20 mg by mouth twice a day -Monitor Current status: Fair, improved Anticipated discharge date: Today Anticipated discharge placement: Home Patient care time: Time spent in chart review, patient interview, physical exam, CPOE, and care documentation: Greater than 30 minutes Visit to patient today: 2 Complexity of care: Moderate For other recommendations regarding discharge diet, activity, followup, and discharge medications please see the patient's discharge instructions. Greater than 30 min. was spent in the patient's discharge preparation including discharge interview and physical examination, progress note, discharge instructions, and discharge summary E&M Codes Discharge: Inpt >30 min spent/81735
[2016-10-02 08:30] VITALS: BP 162/82
[2016-10-02 10:09] VITALS: BP 152/85
[2016-10-02] MEDS ORDERED: NORVASC5 MG PO (13:11)
[2016-10-02] MEDS ORDERED: LISINOPRIL10 MG PO (13:11)
[2016-10-02] MEDS ORDERED: OXYCODONE/ACETA1 TA1 PO (13:11)
[2016-10-02] MEDS ORDERED: NICOTINE T21 MG/24 H TOP (13:11)
[2016-10-02] MEDS ORDERED: ALBUTEROL2.5 MG/3 M IN (13:11)
[2016-10-02] MEDS ORDERED: IPRATROPIUM BROMIDE/ IN (13:11)
[2016-10-02] MEDS ORDERED: PREDNISONE20 MG PO ×2 (13:11→14:02)
[2016-10-02] MEDS ORDERED: LEVOFLOXACIN250 MG PO (13:11)
--- NOTE | 2016-10-02 13:13 | Provider's Discharge Care Plan ---
Problem, Goal, Plan Problem List 1. Pneumonia Goals: Improve disease control, Prevent disease progress Instructions: Follow up as directed, Take meds as directed, Stop smoking 2. COPD exacerbation Goals: Improve disease control, Prevent disease progress Instructions: Follow up as directed, Take meds as directed, Stop smoking
--- NOTE | 2016-10-02 13:28 | Discharge Summary ---
Discharge Summary Report Admit Date 09/26/16 Discharge Date 10/02/16 Admission Diagnosis 1. Pneumonia 2. Exacerbation of COPD 3. Alcohol abuse/dependence 4. Hypertension 5. Nicotine dependence-smoking Discharge Diagnosis 1. Pneumonia 2. Exacerbation of COPD 3. Alcohol abuse/dependence 4. Hypertension 5. Nicotine dependence-smoking 6. Oral candidiasis Brief History The patient is a 56-year-old white male with a significant past medical history of alcohol abuse, COPD, nicotine dependence-smoking, hypertension, who presented to [facility] emergency department secondary to complaints of shortness of breath, cough, and generalized malaise. Evaluation at [facility] emergency department to have findingsconsistent with exacerbation COPD, pneumonia. Secondary to the above, the patient was admitted by David Boyd M.D. for further evaluation and treatment. For other history of present illness, past medical history, family history, social history, review systems, and admission physical examination please see the admission history and physical exam and ER visit note in the patient's medical record. Hospital Course The following problems and their management were noted during the patient's hospitalization: 1. Pneumonia Patient presented with findings of pneumonia. Treated with IV followed by by mouth antimicrobials. Patient discharged on Levaquin 750 mg by mouth daily. Symptoms much improved. Patient afebrile with improved WBC. Outpatient follow- up with PCP. 2. Exacerbation of COPD Patient presented with findings of exacerbation of COPD. Treated with inhalation bronchodilators and corticosteroids. Symptoms much improved at discharge. No ongoing O2 requirements. Patient discharged on Qvar 40 g 2 inhalations twice a day, Ventolin HFA 2 inhalations every 6 hours when necessary for shortness of breath, prednisone 40 mg by mouth daily, DuoNeb every 6 hours, and albuterol neb 2.5 mg via neb every 3 hours when necessary shortness of breath. Outpatient follow-up with PCP. 3. Alcohol abuse/dependence The patient has a history of alcohol abuse/dependence. Status post alcohol rehabilitation program. Increased alcohol abstinence post discharge. 4. Hypertension Patient with history of hypertension. Discharged on low-salt diet. See discharge instructions for medical regimen. Patient discharged on lisinopril 20 mg by mouth twice a day, amlodipine 5 mg by mouth daily, and atenolol 50 mg by mouth daily. 5. Nicotine dependence-smoking Patient with history of nicotine dependence-smoking. Smoking cessation education. NicoDerm patch on discharge. Encourage smoking abstinence at discharge 6. Oral candidiasis The patient was noted to have findings of oral candidiasis at the time of discharge. He was placed on Mycelex devan 1 by mouth 5 times a day on discharge. Outpatient follow-up with PCP Lab/Imaging Laboratory Tests 10/02 0730 Chemistry Plasma Sodium (136 - 145 mmol/L) 139 Plasma Potassium (3.5 - 5.1 mmol/L) 4.1 Plasma Chloride (98 - 107 mmol/L) 103 CO2 (Enzymatic) (21 - 32 mmol/L) 29 BUN (7 - 18 mg/dL) 16 Creatinine (0.6 - 1.3 mg/dL) 0.7 Est GFR ( Amer) (mL/min) >60 Est GFR (Non-Af Amer) (mL/min) >60 Glucose (70 - 110 mg/dL) 111 Plasma Calcium (8.5 - 10.1 mg/dL) 9.0 Hematology WBC (4.5 - 11.5 K/uL) 13.0 RBC (4.50 - 5.90 M/uL) 4.32 Hgb (13.5 - 17.5 gm/dL) 13.5 Hct (41.0 - 53.0 %) 42.3 MCV (80 - 100 fL) 98 MCH (26 - 34 pg) 31 RDW (11.6 - 14.8 %) 14.9 Neut % (Auto) (50 - 75 %) 89 Lymph % (Auto) (25 - 40 %) 6 Jewell % (Auto) (3 - 14 %) 5 Eos % (Auto) (0 - 4 %) 0 Baso % (Auto) (0 - 2 %) 0 Band Neutrophils % (0 - 8 %) 0 Metamyelocytes % (0 - 1 %) 0 Myelocytes (0 - 1 %) 0 Other Cell Type 0 Plt Count, EDTA (150 - 400 K/uL) 269 Hypochromic-Microcytic 1+ Anisocytosis (manual) 1+ PUBS MCHC (31 - 37 g/dL) 32 Discharge Instructions/Meds For other recommendations regarding discharge diet, activity, followup, and discharge medications please see the patient's discharge instructions. Discharge condition: Fair, improved Greater than 30 min. was spent in the patient's discharge preparation including discharge interview and physical examination, progress note, discharge instructions, and discharge summary The patient was interviewed and examined on the day of discharge. E&M Codes Discharge: Inpt >30 min spent/21100
[2016-10-02] MEDS ORDERED: LEVAQUIN750 MG PO (14:01)
[2016-10-02] MEDS ORDERED: MYCELEX10 MG PO (15:38)
== END 2016-10-02 18:45 | disposition home or self-care (01) | DRG 140 ==
LOC: ED SRH 19:01 → TRANS SRH 21:02 → ACUTE3 SRH 22:43
PROVIDERS: ADMIT Emergency Medicine
PROC: 3E0234Z Introduction of Serum, Toxoid and Vaccine into Muscle, Percutaneous Approach (ICD-10-PCS; principal; 2016-09-28)
DX: J44.0 Chronic obstructive pulmonary disease with (acute) lower respiratory infection (principal); J13 Pneumonia due to Streptococcus pneumoniae; J14 Pneumonia due to Hemophilus influenzae; J44.1 Chronic obstructive pulmonary disease with (acute) exacerbation; J45.901 Unspecified asthma with (acute) exacerbation; B37.0 Candidal stomatitis; E83.42 Hypomagnesemia; E87.6 Hypokalemia; M62.838 Other muscle spasm; F17.210 Nicotine dependence, cigarettes, uncomplicated; Z23 Encounter for immunization
CPT/HCPCS: 29257; 90004; 90047; 90065; 90074; 90098; 90100; 90469; 90616; 91295; 91320; 91400; 91588; 92031; 92530; 92610; 92720; 93004; 93140; 94060; 95059; 95061